=== PATIENT | female | born 1995 | race African-American/Black ===

== ENCOUNTER 2018-08-02 10:46 | Emergency (ER) | payer OTHER, SELFPAY ==
[2018-08-02 12:29] LABS: Urine Blood TRACE (NEG); Urine Glucose NEGATIVE (NEG); Urine Protein NEGATIVE (NEG); Urine Specific Gravity 1.025 (1.005-1.030); Urine pH 6.5 (5.0-7.0)
[2018-08-02 12:51] LABS: Urine Amorphous Sediment 2+ /HPF (NONE SEEN); Urine Bacteria NONE SEEN /HPF (<20); Urine Culture Reflex Order NOT NEEDED; Urine RBC <5 /HPF (NONE SEEN)
[2018-08-02] MEDS ORDERED: AZITHROMYCIN 250 MG TAB ONE (14:08)
[2018-08-02] MEDS ORDERED: WATER FOR INJ,STERILE 10 ML ONE (14:08)
[2018-08-02] MEDS ORDERED: CEFTRIAXONE 1000 MG/VIAL ONE (14:08)
--- NOTE | 2018-08-02 14:32 | ER ---
Nurse's Notes [facility] Name: Jacey Pandya Age: 22 yrs Sex: Female : 1995 Arrival Date: 08/02/2018 Time: 10:48 Bed 9 Private MD: Diagnosis: Unspecified sexually transmitted disease-exposure Presentation: 08/02 11:05 Presenting complaint: Patient states: Urinary urgency with pelvic cramping and dark aj urine for 1 week. Patient also reports that she was told by a sexual partner that she may have been exposed to Chlamydia. Transition of care: patient was not received from another setting of care. Onset of symptoms was July 27, 2018. Risk Assessment: Do you want to hurt yourself or someone else? Patient reports no desire to harm self or others. Initial Sepsis Screen: Does the patient meet any 2 criteria? No. Patient's initial sepsis screen is negative. Does the patient have a suspected source of infection? No. Patient's initial sepsis screen is negative. Care prior to arrival: None. 11:05 Method Of Arrival: Ambulatory aj 11:05 Acuity: LARRY 4 aj Triage Assessment: 11:07 General: Appears in no apparent distress. comfortable, Behavior is calm, cooperative, aj appropriate for age. Pain: Denies pain. Neuro: Level of Consciousness is awake, alert, obeys commands, Oriented to person, place, time, situation, Appropriate for age. Respiratory: Airway is patent Respiratory effort is even, unlabored, Respiratory pattern is regular, symmetrical. : Reports urgency, Denies burning with urination. Derm: Skin is intact, is healthy with good turgor, Skin is pink, warm \\T\\ dry. normal. 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 - Social history:: Smoking status: Patient/guardian denies using tobacco. - Ebola Screening: : Patient negative for fever greater than or equal to 101.5 degrees Fahrenheit, and additional compatible Ebola Virus Disease symptoms Patient denies exposure to infectious person Patient denies travel to an Ebola-affected area in the 21 days before illness onset No symptoms or risks identified at this time. Screenin:00 Abuse screen: Denies threats or abuse. Denies injuries from another. Nutritional ss screening: No deficits noted. Tuberculosis screening: Never had TB. Fall Risk None identified. Assessment: 14:00 General: Appears in no apparent distress. comfortable, Behavior is calm, cooperative, ss Denies fever, feeling ill, fatigue, chills. Pain: Denies pain. Neuro: Level of Consciousness is awake, alert, obeys commands, Oriented to person, place, time, situation. Cardiovascular: Heart tones S1 S2 present Capillary refill < 3 seconds is brisk in bilateral fingers Patient's skin is warm and dry. Respiratory: Airway is patent Respiratory effort is even, unlabored, Respiratory pattern is regular, symmetrical. GI: Abdomen is flat, non-distended, Patient currently denies abdominal pain, diarrhea, nausea, vomiting. : Reports burning with urination, urgency, urinary frequency, since x " a few days". Pt reports a sexual partner she was with last month called to tell her that he tested positive for chlamydia. EENT: Oral mucosa is moist. Throat is clear. Derm: Skin is intact, is healthy with good turgor, Skin is pink, warm \\T\\ dry. normal. Musculoskeletal: Range of motion: intact in all extremities, Swelling absent. Vital Signs: 11:07 BP 117 / 90; Pulse 90; Resp 16; Temp 98.8; Pulse Ox 100% on R/A; Weight 71.67 kg; aj Height 5 ft. 4 in. (162.56 cm); 11:07 Body Mass Index 27.12 (71.67 kg, 162.56 cm) aj ED Course: 10:48 Patient arrived in ED. rg4 11:07 Triage completed. aj 11:07 Arm band placed on left wrist. Patient placed in waiting room, Patient notified of wait aj time Patient Given urine cup. 11:24 Sandra Shirley FNP-C is PHCP. snw 11:24 Seng Lopez MD is Attending Physician. snw 13:45 Arlen Stern RN is Primary Nurse. ss 14:00 Patient has correct armband on for positive identification. Bed in low position. Call ss light in reach. 14:00 No provider procedures requiring assistance completed. Patient did not have IV access ss during this emergency room visit. Administered Medications: 14:12 Drug: Rocephin (cefTRIAXone) 1 grams Route: IM; Site: left gluteus; 14:34 Follow up: Response: No adverse reaction ss 14:12 Drug: Zithromax 1 grams Route: PO; ss 14:33 Follow up: Response: No adverse reaction ss Outcome: 14:32 Discharge ordered by MD. gamble 15:04 Discharged to home ambulatory, with family. 15:04 Condition: good 15:04 Discharge instructions given to patient, Instructed on discharge instructions, follow up and referral plans. Demonstrated understanding of instructions, follow-up care. 15:06 Patient left the ED. ss Signatures: Maura Parisi, RN RN Sandra Villafuerte, MOBILE LAB TECHNICIAN-C MOBILE LAB TECHNICIAN-Csnw Arlen Stern RN RN ss Garcia, Rubi rg4
--- NOTE | 2018-08-02 14:33 | EDPHYS ---
Physician Documentation [facility] Name: Jacey Pandya Age: 22 yrs Sex: Female : 1995 Arrival Date: 08/02/2018 Time: 10:48 Bed 9 Private MD: ED Physician Seng Lopez HPI: 08/02 15:42 This 22 yrs old Black Female presents to ER via Ambulatory with complaints of Urinary snw Problem. 15:42 Pt without s/s but was notified she had been recently exposed to chlamydia. Onset: The snw symptoms/episode began/occurred suddenly. Severity of symptoms: At their worst the symptoms were very mild. The patient has not experienced similar symptoms in the past. It is unknown whether or not the patient has recently seen a physician. 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 - Social history:: Smoking status: Patient/guardian denies using tobacco. - Ebola Screening: : Patient negative for fever greater than or equal to 101.5 degrees Fahrenheit, and additional compatible Ebola Virus Disease symptoms Patient denies exposure to infectious person Patient denies travel to an Ebola-affected area in the 21 days before illness onset No symptoms or risks identified at this time. ROS: 15:40 Constitutional: Negative for fever, chills, and weight loss, Eyes: Negative for injury, snw pain, redness, and discharge, ENT: Negative for injury, pain, and discharge, Neck: Negative for injury, pain, and swelling, Cardiovascular: Negative for chest pain, palpitations, and edema, Respiratory: Negative for shortness of breath, cough, wheezing, and pleuritic chest pain, Abdomen/GI: Negative for abdominal pain, nausea, vomiting, diarrhea, and constipation, Back: Negative for injury and pain, : Negative for injury, bleeding, discharge, and swelling, MS/Extremity: Negative for injury and deformity, Skin: Negative for injury, rash, and discoloration, Neuro: Negative for headache, weakness, numbness, tingling, and seizure. Exam: 15:40 Constitutional: This is a well developed, well nourished patient who is awake, alert, snw and in no acute distress. Head/Face: Normocephalic, atraumatic. Eyes: Pupils equal round and reactive to light, extra-ocular motions intact. Lids and lashes normal. Conjunctiva and sclera are non-icteric and not injected. Cornea within normal limits. Periorbital areas with no swelling, redness, or edema. ENT: Nares patent. No nasal discharge, no septal abnormalities noted. Tympanic membranes are normal and external auditory canals are clear. Oropharynx with no redness, swelling, or masses, exudates, or evidence of obstruction, uvula midline. Mucous membranes moist. Neck: Trachea midline, no thyromegaly or masses palpated, and no cervical lymphadenopathy. Supple, full range of motion without nuchal rigidity, or vertebral point tenderness. No Meningismus. Chest/axilla: Normal chest wall appearance and motion. Nontender with no deformity. No lesions are appreciated. Cardiovascular: Regular rate and rhythm with a normal S1 and S2. No gallops, murmurs, or rubs. Normal PMI, no JVD. No pulse deficits. Respiratory: Lungs have equal breath sounds bilaterally, clear to auscultation and percussion. No rales, rhonchi or wheezes noted. No increased work of breathing, no retractions or nasal flaring. Abdomen/GI: Soft, non-tender, with normal bowel sounds. No distension or tympany. No guarding or rebound. No evidence of tenderness throughout. Back: No spinal tenderness. No costovertebral tenderness. Full range of motion. Skin: Warm, dry with normal turgor. Normal color with no rashes, no lesions, and no evidence of cellulitis. MS/ Extremity: Pulses equal, no cyanosis. Neurovascular intact. Full, normal range of motion. Neuro: Awake and alert, GCS 15, oriented to person, place, time, and situation. Cranial nerves II-XII grossly intact. Motor strength 5/5 in all extremities. Sensory grossly intact. Cerebellar exam normal. Normal gait. Vital Signs: 11:07 BP 117 / 90; Pulse 90; Resp 16; Temp 98.8; Pulse Ox 100% on R/A; Weight 71.67 kg; aj Height 5 ft. 4 in. (162.56 cm); 11:07 Body Mass Index 27.12 (71.67 kg, 162.56 cm) aj MDM: 13:54 Patient medically screened. snw 15:41 Data reviewed: vital signs, nurses notes. Data interpreted: Pulse oximetry: on room air snw is 100 %. Interpretation: normal. Counseling: I had a detailed discussion with the patient and/or guardian regarding: the historical points, exam findings, and any diagnostic results supporting the discharge/admit diagnosis, the presence of at least one elevated blood pressure reading (>120/80) during this emergency department visit, lab results, the need for outpatient follow up, to return to the emergency department if symptoms worsen or persist or if there are any questions or concerns that arise at home. Special discussion: Based on the history and exam findings, there is no indication for further emergent testing or inpatient evaluation. I discussed with the patient/guardian the need to see the primary care provider for further evaluation of the symptoms. 15:43 ED course: encouraged to f/u [facility] clinic for further testing. snw 08/02 11:25 Order name: Urine Culture snw 08/02 11:25 Order name: Urine Microscopic Only; Complete Time: 12:53 snw 08/02 12:15 Order name: Urine Dipstick--Ancillary (enter results); Complete Time: 12:30 eb 08/02 12:15 Order name: Urine --Ancillary (enter results); Complete Time: 12:30 eb 08/02 11:25 Order name: Urine Test (obtain specimen); Complete Time: 13:46 snw 08/02 11:25 Order name: Urine Dipstick-Ancillary (obtain specimen); Complete Time: 13:46 snw Administered Medications: 14:12 Drug: Rocephin (cefTRIAXone) 1 grams Route: IM; Site: left gluteus; ss 14:34 Follow up: Response: No adverse reaction ss 14:12 Drug: Zithromax 1 grams Route: PO; ss 14:33 Follow up: Response: No adverse reaction ss Disposition: 18:32 Co-signature as Attending Physician, Seng Lopez MD I agree with the assessment and kdr plan of care. Disposition: 08/02/18 14:32 Discharged to Home. Impression: Unspecified sexually transmitted disease - exposure. - Condition is Stable. - Discharge Instructions: Sexually Transmitted Disease. - Medication Reconciliation Form, Thank You Letter, Antibiotic Education, Prescription Opioid Use form. - Follow up: Private Physician; When: 2 - 3 days; Reason: Recheck today's complaints, Continuance of care, Re-evaluation by your physician. Follow up: Emergency Department; When: As needed; Reason: Worsening of condition. Signatures: Dispatcher [employer] Maura Haider, RN RN Seng Mullen MD MD kdr Therrien, Shelly, BELT MOLDER-C BELT MOLDER-Csnw Arlen Stern RN RN ss Corrections: (The following items were deleted from the chart) 15:06 14:32 08/02/2018 14:32 Discharged to Home. Impression: Unspecified sexually transmitted ss disease - exposure. Condition is Stable. Forms are Medication Reconciliation Form, Thank You Letter, Antibiotic Education, Prescription Opioid Use. Follow up: Private Physician; When: 2 - 3 days; Reason: Recheck today's complaints, Continuance of care, Re-evaluation by your physician. Follow up: Emergency Department; When: As needed; Reason: Worsening of condition. snw
== END 2018-08-02 15:06 | disposition home or self-care (01) ==
LOC: ER 10:46
DX: A64 Unspecified sexually transmitted disease (principal)
CPT/HCPCS: 81003; 81015; 81025; 87086; 87088; 96372; 99283

== ENCOUNTER 2019-02-19 20:44 | Emergency (ER) | payer SELFPAY ==
--- OUTSIDE RECORDS SUMMARY | 2019-02-19 20:46 | XMS REPORT ---
:1995 [facility] Address [address] [place] [address] Dr. Curtis [address] [place] [id number] Care Team Providers Name Role Phone Unavailable Unavailable Unavailable Problems This patient has no known problems. Allergies, Adverse Reactions, Alerts This patient has no known allergies or adverse reactions. Medications This patient has no known medications.
--- OUTSIDE RECORDS SUMMARY | 2019-02-19 20:46 | XMS REPORT | Encounter Summary ---
:1995 Author Care Team Providers Name Role Phone Isidro Eli Hub Inventory Specialist [phone] Reason for Visit Problem Visit Instructions 1. Acute cervicitis urinalysis, dipstick doxycycline monohydrate 100 mg capsule wet [place], vaginal CT + NG DNA, PCR, cervical 2. Bacterial vaginosis Flagyl 500 mg tablet 3. Exposure to sexually transmissible disorder Discussion Note At least 15 min. of face to face time with the patient, >50% spent on counseling. Patient educational handouts: No information available. Plan of Care Reminders Provider Appointments None recorded. Lab Urinalysis, In-House Results Dipstick 11/13/2018 [place], In-House Results Vaginal 11/13/2018 CT + NG DNA, [facility] PCR, Cervical 11/13/2018 [facility] Center (Lab[facility] Referral None recorded. Procedures None recorded. Surgeries None recorded. Imaging None recorded. Medications Name Start Date acetaminophen 300 mg-codeine 30 mg tablet 1-2 p.o. q 6 hours PRN pain Ceftin 250 mg tablet Take 1 tablet every 12 hours by oral route for 5 days. Diflucan 100 mg tablet Take 1 tablet every 72 hours by oral route. doxycycline monohydrate 100 mg capsule Take 1 capsule twice a day by oral route for 7 days. Flagyl 500 mg tablet Take 1 tablet twice a day by oral route for 7 days. ibuprofen 800 mg tablet RhoGAM Ultra-Filtered PLUS 1,500 unit (300 mcg) intramuscular syringe Inject 300 micrograms by intramuscular route. tramadol 50 mg tablet TAKE 1 TO 2 TABLETS BY MOUTH 3 TIMES A DAY NEEDED zolpidem 10 mg tablet one p.o. at HS PRN sleep Medications Administered None recorded. Vitals Height Weight BMI Blood Pressure 5 ft 3 in 165 lbs 29.2 kg/m2 116/78 mm[Hg] Lab Results Date Name Specimen Result Interpretation Description Value Range Status Address 11/13/2018 Urinalysis, Leukocytes Trace In-House Dipstick Results: For Internal Use Only Nitrite negative In-House Results: For Internal Use Only Urobilinogen .2 In-House Results: For Internal Use Only Protein Negative In-House Results: For Internal Use Only Ph 6.5 In-House Results: For Internal Use Only Blood Negative In-House Results: For Internal Use Only Specific 1.020 In-House [place] Results: For Internal Use Only Ketone Negative In-House Results: For Internal Use Only Bilirubin Negative In-House Results: For Internal Use Only Glucose Negative In-House Results: For Internal Use Only Appearance Clear In-House Results: For Internal Use Only Color Yellow In-House Results: For Internal Use Only [place], Clue Cells positive In-House Vaginal Results: For Internal Use Only Wbcs positive In-House Results: For Internal Use Only Trichomonads negative In-House Results: For Internal Use Only Epithelial abnormal In-House Cells Results: For Internal Use Only Rbcs negative In-House Results: For Internal Use Only Allergies Code Code System Name Reaction Severity Status Onset NKDA Problems Name Status Onset Date Source Bacterial Vaginosis Active 04/16/2018 Acute Cervicitis Active 04/16/2018 Acute Cystitis Active Encounter Threatened Premature Labor - Not Active Encounter Delivered 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 Social History Smoking Status Never Smoker Past Encounters 11/13/2018 Acute Cervicitis; Bacterial Vaginosis; Exposure to Sexually Transmissible Disorder Isidro Eli MD: [address] [place] [id number], Ph. [phone] History of Present Illness Note: Problem visit. Had intercourse three weeks ago with a new partner that subsequently tested positive for chlamydia. She did not use a condom. Went to the ER in [place] where she was given an injection and pills to take there in the ER, but no cervical swab was done. She continues to have a discharge with an odor. No itching or burning. Review of Systems REPAIRER HANDTOOLS ROS Reported By: Patient Constitutional: Constitutional: no fatigue, no fever, no significant weight gain, no significant weight loss Skin: Skin: no abnormal moles, no rashes Eyes: Eyes: no irritation, no vision changes ENMT: ENMT: no hearing loss, no ear pain, no nose/sinus problems, no sore throat, no snoring, no dry mouth, no mouth ulcers Respiratory: Respiratory: no dyspnea / shortness of breath, no cough, no sputum production, no hemoptysis, no wheezing Cardiovascular: Cardiovascular: no chest pain, no palpitations, no orthopnea Gastrointestinal: Gastrointestinal: no heartburn, no dysphagia, no nausea, no vomiting, no bowel movement changes, no diarrhea, no constipation, no rectal bleeding, abdominal pain Genitourinary: Genitourinary: no hematuria, no abnormal bleeding, no flank pain, no trouble urinating, no incontinence, no rash, no lesion, no vaginal itching, discharge, vaginal odor Endocrine: Menstrual: no menstrual problems, no PMDD symptoms. Menopausal: no menopausal symptoms. Sexual: no sexual problems Musculoskeletal: Musculoskeletal: no muscle aches, no muscle weakness, no arthralgias/joint pain, no back pain Neurological: Neurologic: no headaches, no dizziness, no LOC, no weakness, no numbness, no seizures Psychological: Psych: no depression, no alcoholism, no sleep disturbances Physical Exam Pelvic Reported By: Patient Burr Filer: Burr Filer: present Female Genitalia: Vulva: no masses, no atrophy, no lesions. Bladder/Urethra: normal meatus, no urethral discharge, no urethral mass, bladder non distended. Vagina no tenderness, no erythema, no vesicle(s) or ulcers, no cystocele, no rectocele, abnormal vaginal discharge. Cervix: grossly normal, no cervical motion tenderness, discharge. Uterus: normal size, normal shape, midline, mobile, non-tender, no uterine prolapse. Adnexa/Parametria: no parametrial tenderness, no parametrial mass, no adnexal tenderness, no ovarian mass
[2019-02-19] MEDS ORDERED: ACETAMINOPHEN 500 MG TAB ONE (21:38)
--- NOTE | 2019-02-19 22:17 | EDPHYS ---
Physician Documentation [facility] Name: Jacey Pandya Age: 23 yrs Sex: Female : 1995 Arrival Date: 02/19/2019 Time: 20:45 Bed 8 Private MD: ED Physician Babatunde Zheng HPI: 02/19 22:16 This 23 yrs old Black Female presents to ER via Ambulatory with complaints of Flu jmm Symptoms. 22:16 The patient or guardian reports cough. The patient or guardian reports cough. The jmm patient or guardian reports flu symptoms. Onset: The symptoms/episode began/occurred gradually, 2 day(s) ago. This is a 23 year old female with no chronic medical conditions that presents to the ED with complaints of sore throat, cough, congestion beginning approx 2 days ago. . 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 - Social history:: Smoking status: Patient uses tobacco products, denies chronic smoking, but will smoke occasionally. - Ebola Screening: : No symptoms or risks identified at this time. ROS: 22:16 Constitutional: Positive for body aches, fever. jmm 22:16 ENT: Positive for sinus congestion, sore throat. 22:16 Respiratory: Positive for cough. 22:16 All other systems are negative. Exam: 22:16 Head/Face: atraumatic. Eyes: EOMI, no conjunctival erythema appreciated jmm 22:16 Neck: Trachea midline, Supple Chest/axilla: Normal chest wall appearance and motion. 22:16 Abdomen/GI: Non distended, soft Back: Normal ROM Skin: General appearance color normal MS/ Extremity: Moves all extremities, no obvious deformities appreciated, no edema noted to the lower extremities Neuro: Awake and alert, normal gait Psych: Behavior is normal, Mood is normal, Patient is cooperative and pleasant 22:16 Constitutional: The patient appears in no acute distress, alert, awake. 22:16 ENT: TM's: erythema, that is mild, bilaterally, Posterior pharynx: erythema, that is mild. 22:16 Cardiovascular: Rate: normal, Rhythm: regular. 22:16 Respiratory: the patient does not display signs of respiratory distress, Respirations: normal, Breath sounds: are clear throughout. Vital Signs: 21:16 BP 117 / 67; Pulse 94; Resp 18; Temp 101.4(O); Weight 74.84 kg; Height 5 ft. 3 in. lp1 (160.02 cm); Pain 7/10; 22:19 BP 120 / 60; Pulse 80; Resp 18; Temp 99.5(O); Pulse Ox 99% ; ea 21:16 Body Mass Index 29.23 (74.84 kg, 160.02 cm) lp1 MDM: 21:54 Patient medically screened. [facility] 22:16 Data reviewed: vital signs, nurses notes. Counseling: I had a detailed discussion with polina the patient and/or guardian regarding: the historical points, exam findings, and any diagnostic results supporting the discharge/admit diagnosis, the need for outpatient follow up, to return to the emergency department if symptoms worsen or persist or if there are any questions or concerns that arise at home. 22:16 ED course: Patient is alert and non toxic in appearance in the ED. Due to symptoms and [facility] PE findings patient will be prescribed tamiflu. Patient is given strict return precautions. patient understood and agrees with the plan of care. . 02/19 21:22 Order name: Flu; Complete Time: 22:04 ea Administered Medications: 21:30 Drug: Tylenol 1000 mg Route: PO; ea 22:19 Follow up: Response: No adverse reaction; Temperature is decreased ea Disposition: 23:16 Co-signature as Attending Physician, Babatunde Zheng MD. pkl Disposition: 02/19/19 22:16 Discharged to Home. Impression: Acute upper respiratory infection, unspecified. - Condition is Stable. - Discharge Instructions: Influenza, Adult, Upper Respiratory Infection, Adult. - Prescriptions for Tamiflu 75 mg Oral Capsule - take 1 tablet by ORAL route every 12 hours for 5 days; 10 tablet. - Medication Reconciliation Form, Thank You Letter, Antibiotic Education, Prescription Opioid Use, Work release form form. - Follow up: Private Physician; When: 2 - 3 days; Reason: Recheck today's complaints, Continuance of care, Re-evaluation by your physician. Signatures: Dispatcher [employer] EDBabatunde Gonzalez MD MD pkl Mickail, Joel, PA PA jmm Pena, Laura, RN RN lp1 Crissy East RN RN ea Corrections: (The following items were deleted from the chart) 22:27 22:16 02/19/2019 22:16 Discharged to Home. Impression: Acute upper respiratory ea infection, unspecified. Condition is Stable. Forms are Medication Reconciliation Form, Thank You Letter, Antibiotic Education, Prescription Opioid Use. Follow up: Private Physician; When: 2 - 3 days; Reason: Recheck today's complaints, Continuance of care, Re-evaluation by your physician. romel
--- NOTE | 2019-02-19 22:17 | ER ---
Nurse's Notes [facility] Name: Jacey Pandya Age: 23 yrs Sex: Female : 1995 Arrival Date: 02/19/2019 Time: 20:45 Bed 8 Private MD: Diagnosis: Acute upper respiratory infection, unspecified Presentation: 02/19 21:14 Presenting complaint: Mother states: General body aches, fever, throat pain, nausea lp1 that began today; Has been around someone who was recently diagnosed with Flu. Transition of care: patient was not received from another setting of care. Onset of symptoms was February 19, 2019. Risk Assessment: Do you want to hurt yourself or someone else? Patient reports no desire to harm self or others. Initial Sepsis Screen: Does the patient meet any 2 criteria? No. Patient's initial sepsis screen is negative. Does the patient have a suspected source of infection? No. Patient's initial sepsis screen is negative. Care prior to arrival: None. 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 - Social history:: Smoking status: Patient uses tobacco products, denies chronic smoking, but will smoke occasionally. - Ebola Screening: : No symptoms or risks identified at this time. Screenin:18 Abuse screen: Denies threats or abuse. Denies injuries from another. Nutritional lp1 screening: No deficits noted. Tuberculosis screening: No symptoms or risk factors identified. Fall Risk None identified. Assessment: 21:36 General: Appears in no apparent distress. Behavior is calm, cooperative, appropriate ea for age. Pain: Complains of pain in body aches. Neuro: Level of Consciousness is awake, alert, obeys commands, Oriented to person, place, time, situation. Cardiovascular: Patient's skin is warm and dry. Respiratory: Airway is patent Respiratory effort is even, unlabored, Respiratory pattern is regular, symmetrical. Derm: Skin is dry, Skin is pale, Skin temperature is warm. 22:27 Reassessment: Patient and/or family updated on plan of care and expected duration. Pain ea level reassessed. Patient is alert, oriented x 3, equal unlabored respirations, skin warm/dry/pink. Discharge instruction given to patient, verbalized the understanding of instruction Patient states feeling better. Vital Signs: 21:16 BP 117 / 67; Pulse 94; Resp 18; Temp 101.4(O); Weight 74.84 kg; Height 5 ft. 3 in. lp1 (160.02 cm); Pain 7/10; 22:19 BP 120 / 60; Pulse 80; Resp 18; Temp 99.5(O); Pulse Ox 99% ; ea 21:16 Body Mass Index 29.23 (74.84 kg, 160.02 cm) lp1 ED Course: 20:45 Patient arrived in ED. am2 21:15 Triage completed. lp1 21:16 Arm band placed on right wrist. lp1 21:21 Crissy East, NARESH is Primary Nurse. ea 21:26 Mulugeta Solano PA is PHCP. [facility] 21:26 Babatunde Zheng MD is Attending Physician. [facility] 21:37 Patient has correct armband on for positive identification. Bed in low position. Call ea light in reach. Side rails up X2. 22:26 No provider procedures requiring assistance completed. Patient did not have IV access ea during this emergency room visit. Administered Medications: 21:30 Drug: Tylenol 1000 mg Route: PO; ea 22:19 Follow up: Response: No adverse reaction; Temperature is decreased ea Outcome: 22:16 Discharge ordered by . romel 22:26 Discharged to home ambulatory, with family. ea 22:26 Condition: improved 22:26 Discharge instructions given to patient, Instructed on discharge instructions, follow up and referral plans. medication usage, Demonstrated understanding of instructions, follow-up care, medications, Prescriptions given X 1. 22:27 Patient left the ED. ea Signatures: Mulugeta Solano PA PA jmm Pena, Laura, RN RN lp1 Maura Joyce am2 Crissy East RN RN rajendra
== END 2019-02-19 22:27 | disposition home or self-care (01) ==
LOC: ER 20:44
DX: J06.9 Acute upper respiratory infection, unspecified (principal); Z72.0 Tobacco use
CPT/HCPCS: 87804; 99283